=== PATIENT | male | born 1945 | race Caucasian/White ===

== ENCOUNTER 2021-08-27 10:00 | Day surgery (SDC) | payer MEDICARE, OTHER ==
[~2021-08-27] VITALS: Ht 177 cm; Wt 81.0 kg
[2021-08-27 08:28] VITALS: BP 158/95
[2021-08-27 08:45] LABS: HEMATOCRIT 44 % (40-54); HEMOGLOBIN 14.6 g/dL (13.3-17.7); MEAN CORPUSCULAR HEMOGLOBIN 32 pg (25-34); MEAN CORPUSCULAR HGB CONC 34 g/dL (32-36); MEAN CORPUSCULAR VOLUME 97 fL (80-99); PLATELET COUNT 191 10^3/uL (130-400); WHITE BLOOD COUNT 5.9 10^3/uL (4.3-11.0)
[2021-08-27 08:50] LABS: INR 1.1 (0.8-1.4); PROTHROMBIN TIME PATIENT 14.1 SEC (12.2-14.7)
[2021-08-27 09:01] LABS: BILIRUBIN,TOTAL 2.2 MG/DL (0.1-1.0); CALCIUM 9.4 MG/DL (8.5-10.1); CREATININE SERUM 0.92 MG/DL (0.60-1.30); TOTAL PROTEIN 6.6 GM/DL (6.4-8.2)
[~2021-08-27 10:00] MED LIST: ASPI-999 PO; HEParin (CATH LAB) 2,000 ML IV ONE; LIDOCAINE 1% INJ 20 ML 20 ML VIAL ONE; METO50TA7 PO; NS IV 1000 ML 1,000 ML IV SCH; NS IV 1000 ML 1,000 ML ONE; PANT40TA52 PO; SIMV20TA26 PO; SUCR1TAB PO
[2021-08-27] MEDS ORDERED: MIDAZOLAM 5 MG/5 ML (VERSED) VIAL ONE (10:33)
[2021-08-27] MEDS ORDERED: fentaNYL INJ 100 MCG/2 ML AMP ONE ×2 (10:33→15:02)
[2021-08-27] MEDS ORDERED: HEParin 1000 UNIT/ML (10ML VIAL) FOR BOLUS ONE (11:23)
[2021-08-27] MEDS ORDERED: ADENOSINE 90 MG/30 ML (ADENOSCAN) VIAL IV ONE (11:25)
[2021-08-27] MEDS ORDERED: EPTIFIBATIDE BOLUS 20 ML IV ONE (11:40)
[2021-08-27] MEDS ORDERED: NITRO DRIP 25000 MCG/D5W 250 ML IV ONE (11:44)
[2021-08-27] MEDS ORDERED: CLOPIDOGREL 300 MG (PLAVIX) TABLET PO ONE (12:06)
[2021-08-27] MEDS ORDERED: ASPIRIN 81 MG CHEW (CHILDREN'S ASA) ONE (12:07)
[2021-08-27 12:45] VITALS: BP 131/75
--- NOTE | 2021-08-27 12:51 | Cardiac Procedure Note-CS/ASA ---
Pre-Procedure Note Pre-Op Procedure Note H&P Reviewed The H&P was reviewed, patient examined and no changes noted. Date H&P Reviewed: Aug 27, 2021 Time H&P Reviewed: 11:00 Conscious Sedation Pre-Proced Time 11:00 ASA Score 3 For ASA 3 and 4: Consider anesthesia and medical clearance. Also, for patients with a history of failed moderate sedation consider anesthesia. Airway Lungs Heart ASA score ASA 1: a normal healthy patient ASA 2: a patient with a mild systemic disease (mid diabetes, controlled hypertension, obesity ASA 3: a patient with a severe systemic disease that limits activity (angina, COPD, prior Myocardial infarction) ASA 4: a patient with an incapacitating disease that is a constant threat to life (CHF, renal failure) ASA 5: a moribund patient not expected to survive 24 hrs. (ruptured aneurysm) ASA 6: a declared brain- patient whose organs are being harvested. For emergent operations, add the letter E after the classification Mallampati Classification Grade 2 Sedation Plan Analgesia, Amnesia, Plan communicated to team members, Discussed options with patient/fam, Discussed risks with patient/fam The patient is an appropriate candidate to undergo the planned procedure, sedation, and anesthesia. The patient immediately re-assessed prior to indication. CODY MURRAY MD FACP FAC CCDS Aug 27, 2021 12:51
[2021-08-27] MEDS ORDERED: PATIENT MAY USE OWN MEDS, ALL PO SCH (13:00)
[2021-08-27] MEDS ORDERED: ACETAMINOPHEN 325 MG TABLET PO PRN (13:00)
[2021-08-27] MEDS: NS IV 1000 ML 1,000 ML IV SCH ×2 (14:11→23:01)
--- NOTE | 2021-08-27 14:55 | CARDIAC CATHETERIZATION ---
DATE OF SERVICE: 08/27/2021 CARDIAC CATHETERIZATION AND CORONARY INTERVENTION REPORT INDICATION FOR PROCEDURE: The patient is a 75-year-old gentleman, who was found to have an irregular heartbeat and his primary physician, Dr. Michel carried out a Holter monitor study that showed a high burden of premature ventricular contractions and one 3-beat run of ventricular tachycardia. He has multiple coronary artery disease risk factors, as well. Accordingly, cardiac catheterization was recommended and informed consent was obtained for cardiac catheterization and possible ad hoc coronary intervention. DESCRIPTION OF PROCEDURE: He was brought to the cardiac catheterization laboratory in a fasting state. Right groin was prepared and draped in the usual sterile fashion. Lidocaine 1% was used for local anesthesia. Modified Seldinger technique was used to advance a 5-Namibian sheath in the right femoral artery. A 5-Namibian JL4 catheter was used for left coronary angiography, 5-Namibian JR4 catheter for right coronary angiography, 5-Namibian pigtail catheter was used for left heart catheterization and left ventricular coronary angiography. Subsequently, fractional flow reserve measurement was carried out in the left anterior descending artery and it is described below. FRACTIONAL FLOW RESERVE MEASUREMENT IN THE LEFT ANTERIOR DESCENDING ARTERY: We exchanged the sheath over a wire for a 6-Namibian sheath. We gave 4000 units of intravenous heparin. We used a 6-Namibian JL4 guide catheter with side holes to engage the left coronary artery and advanced the pressure wire across the lesion in the mid left anterior descending artery, which angiographically, appeared to be 60% to 70%. These were two tandem lesions, close together in the left anterior descending. The fractional flow reserve was measured while infusing 140 mcg per kilogram per minute of adenosine. Fractional flow reserve was 0.77, indicating that the lesions were hemodynamically significant. Accordingly, we proceeded with percutaneous intervention to the left anterior descending artery and it is described below. PERCUTANEOUS INTERVENTION TO THE LEFT ANTERIOR DESCENDING: We gave additional 1000 units of intravenous heparin. We gave a double bolus of Integrilin. We advanced a Starpoint 2.5 x 12 mm stent to the first lesion in the left anterior descending. Our idea was that if treatment of the first lesion improve the fractional flow reserve wire, then we may not have to intervene on the more distal lesion. We deployed the stent at 16 atmospheres. This improved the stenosis from 70% to 0% residual. The distal stenosis still appeared to be about 60% and 70% and it appeared still to be hemodynamically significant on the pressure wire readings. Therefore, we advanced another stent (2.25 x 18 mm Starpoint) and this was placed distal to the previous stent and the proximal edge of this new stent slightly overlaps the distal edge of the previously placed stent. This stent was also deployed at 16 atmospheres. Subsequently, at the site of the overlap, we used an Delphos 2.5 x 15 mm balloon that was inflated to 20 atmospheres. This was done to make sure that the stent edges are well opposed. Subsequent angiography revealed no significant residual stenosis and flow throughout the vessel is normal. The distal stent appeared slightly oversized compared to the distal vessel, but there is no evidence of any dissection or flow compromise. Two diagonal branches are jailed by the stented segment, but there is no flow compromise in these vessels. At the end of the procedure, the sheath was sutured in place and the patient was transferred to the floor for manual sheath removal. He received 600 mg of oral Plavix and 162 mg of oral aspirin at the end of this interventional procedure. He tolerated the procedure well. HEMODYNAMICS: Left ventricular end-diastolic pressure following coronary angiography was 8 mmHg. There was no significant pressure gradient on pullback across the aortic valve. Ascending aortic pressure was 116/54 with a mean of 78 mmHg. CORONARY ANGIOGRAPHY: Left main coronary artery is free of significant disease. Left anterior descending artery had tandem lesions in its mid portion (up to 70% stenosis with a fractional flow reserve across these up to 0.77). Both of these lesions were stented with overlapping stents. The proximal stent is 2.5 x 12 mm and the distal stent is 2.25 x 18 mm. The overlapping segment was postdilated with Delphos 2.5 x 15 mm balloon. This reduced the stenosis and no significant residual and flow throughout the vessel is normal. Two diagonal branches are jailed by the stented segment, but there is no flow compromise in them. The left circumflex artery does not exhibit significant disease. The right coronary artery is dominant and does not exhibit significant disease. LEFT VENTRICULAR ANGIOGRAPHY: Left ventricular angiography was carried out in the right anterior oblique projection. Global left ventricular systolic function normal. No regional wall motion abnormalities were seen. Left ventricular ejection fraction is approximately 60%. CONCLUSIONS: 1. Coronary artery disease primarily consisting of 70% stenosis in the mid left anterior descending with impaired fractional flow reserve. This was successfully treated with overlapping stents (2.5 x 12 mm proximal and 2.25 x 18 mm distal, overlapped, postdilated with 2.5 x 15 mm balloon). The rest of the coronary arteries do not exhibit significant stenoses. 2. Normal global left ventricular systolic function with ejection fraction approximately 60%. 3. Normal left ventricular end-diastolic pressure. DISCUSSION AND RECOMMENDATIONS: He is being hospitalized for overnight observation. Dual antiplatelet therapy has been initiated. Statin therapy will be continued. He is also on beta-hossein therapy, which is being continued. Job ID: [id number] DocumentID: [id number] Dictated Date: 08/27/2021 12:28:51 Deli Cutter Slicer Date: 08/27/2021 14:54:17 Dictated By: CODY MURRAY MD, MA, FACP, FACC,
[2021-08-27] MEDS ORDERED: ATROPINE INJECTION 1 MG/10 ML SYR (ABBOTT) ONE (15:04)
[2021-08-27 15:45] VITALS: BP 134/70
[2021-08-27 16:00] VITALS: BP 117/71
[2021-08-27 20:00] VITALS: BP 132/71
[2021-08-27] MEDS ORDERED: SIMvastatin 20 MG (ZOCOR) TAB PO SCH (21:00)
[2021-08-28] VITALS: BP 118/69
[2021-08-28 04:00] VITALS: BP 109/62
[2021-08-28 06:04] LABS: HEMOGLOBIN 13.3 g/dL (13.3-17.7)
[2021-08-28 06:05] LABS: BASOPHILS % (AUTO) 0 % (0-10); EOSINOPHILS # (AUTO) 0.1 10^3/uL (0.0-0.3); EOSINOPHILS % (AUTO) 2 % (0-10); HEMATOCRIT 39 % (40-54); LYMPHOCYTES # (AUTO) 1.1 10^3/uL (1.0-4.0); LYMPHOCYTES % (AUTO) 21 % (12-44); MEAN CORPUSCULAR HEMOGLOBIN 33 pg (25-34); MEAN CORPUSCULAR HGB CONC 34 g/dL (32-36); MEAN CORPUSCULAR VOLUME 97 fL (80-99); MEAN PLATELET VOLUME 13.3 fL (9.0-12.2); MONOCYTES # (AUTO) 0.3 10^3/uL (0.0-1.0); MONOCYTES % (AUTO) 6 % (0-12); NEUTROPHILS # (AUTO) 3.8 10^3/uL (1.8-7.8); NEUTROPHILS % (AUTO) 70 % (42-75); PLATELET COUNT 164 10^3/uL (130-400); WHITE BLOOD COUNT 5.4 10^3/uL (4.3-11.0)
[2021-08-28 06:17] LABS: POTASSIUM 3.8 MMOL/L (3.6-5.0)
[2021-08-28 06:18] LABS: CALCIUM 8.2 MG/DL (8.5-10.1)
[2021-08-28 06:23] LABS: CREATININE SERUM 0.75 MG/DL (0.60-1.30)
[2021-08-28 06:25] LABS: MAGNESIUM 1.7 MG/DL (1.6-2.4)
[2021-08-28 07:59] VITALS: BP 127/76
--- NOTE | 2021-08-28 07:59 | Progress Note - Cardiology ---
Cardiology SOAP Progress Note Subjective: Lying in bed No c/o CP, SOB, palpitations, syncope or near syncope No c/o right groin discomfort Objective: I&O/Vital Signs Side: right Groin site without hematoma: Yes Condition: DP/PT pulses palpable, extremity w/d/p Constitutional: AAO x 3 Respiratory: No accessory muscle use, No respiratory distress; chest expansion is symmetric, chest is bilaterally symmetric, lungs clear to auscultation Cardiovascular: regular rate-rhythm; No JVD; S1 and S2 Gastrointestional: No tender; soft, round, audible bowel sounds Extremities: no lower extremity edema bilateral Neurologic/Psychiatric: grossly intact (moves all extremities) Skin: No rash on exposed areas, No ulcerations on exposed areas Results/Procedures: Labs Microbiology 08/27/21 MRSA Screen - Final, Complete MRSA not isolated A/P: Assessment: CAD - Cardiac cath of 08-27-21: Coronary artery disease primarily consisting of 70% stenosis in the mid left anterior descending with impaired fractional flow reserve. This was successfully treated with overlapping stents (2.5 x 12 mm proximal and 2.25 x 18mm distal, overlapped, postdilated with 2.5 x 15 mm balloon). The rest of the coronary arteries do not exhibit significant stenoses. Normal global left ventricular systolic function with ejection fraction approximately 60%. Normal left ventricular end-diastolic pressure. Arrhythmia - 24 HR Holter of 08-19-[address] Michel showed freq PVC's. One 3 beat run of V- tach Hyperlipidemia - statin tx Fam h/o early CAD (mother had CABG at age approx 53) Plan: S/P cardiac cath with successful intervention on 08-27-21 Ok to discharge home today Continue DAPT, BB and statin Advise out pt f/u in 2 weeks Discharge home today CAYETANO SKELTON Aug 28, 2021 07:59
[2021-08-28] MEDS ORDERED: PANTOPRAZOLE 40 MG (PROTONIX) TAB PO SCH (09:00)
[2021-08-28] MEDS ORDERED: CLOP75TA28 PO (09:00)
[2021-08-28] MEDS ORDERED: meTOproloL SUCCINATE 50 MG (TOPROL XL) TAB PO SCH (09:00)
[2021-08-28] MEDS ORDERED: ASPIRIN 81 MG CHEW (CHILDREN'S ASA) PO SCH (09:00)
[2021-08-28] MEDS ORDERED: CLOPIDOGREL 75 MG (PLAVIX) TABLET PO SCH (09:00)
--- NOTE | 2021-08-28 09:01 | Discharge Inst-Cardiology ---
Discharge Inst-Cardiac Discharge Medications New Medications: Clopidogrel Bisulfate (Clopidogrel) 75 Mg Tablet 75 MG PO DAILY, #90 TAB 3 Refills Continued Medications: Aspirin (Aspirin) 81 Mg Tab.chew 81 MG PO DAILY, TAB Metoprolol Succinate (Metoprolol Succinate) 50 Mg Tab.er.24h 50 MG PO DAILY, TAB Pantoprazole Sodium (Pantoprazole Sodium) 40 Mg Tablet.dr 40 MG PO DAILY, TAB Simvastatin (Simvastatin) 20 Mg Tablet 20 MG PO HS, TAB Sucralfate (Sucralfate) 1 Gm Tablet 1 GM PO QID, TAB New, Converted or Re-Newed RX: Transmitted to Pharmacy Patient Instructions Patient Instructions: Please schedule follow up appointment to see Dr. Dumas in 2 weeks CAYETANO SKELTON Aug 28, 2021 09:00
[2021-08-28] MEDS: NS IV 1000 ML 1,000 ML IV SCH (09:48)
[2021-08-28 12:01] VITALS: BP 131/113
[2021-08-28 12:02] VITALS: BP 131/113
--- NOTE | 2021-08-28 13:27 | Progress Note - Cardiology ---
Cardiology SOAP Progress Note Subjective: No cp or palp or syncope No shortness of breath No groin or leg discomfort No n/v/d Objective: I&O/Vital Signs 08/28/21 08/28/21 08/28/21 08/28/21 04:00 07:00 07:59 09:00 Temp 36.5 36.5 Pulse 70 59 75 Resp 12 18 B/P (MAP) 109/62 (78) 127/76 (93) Pulse Ox 93 97 97 O2 Delivery Room Air Room Air Room Air 08/28/21 08/28/21 12:01 12:02 Temp 36.3 36.3 Pulse 73 73 Resp 18 18 B/P (MAP) 131/113 (119) 131/113 (119) Pulse Ox 97 97 O2 Delivery Room Air Room Air Side: right Groin site without hematoma: Yes Condition: DP/PT pulses palpable, extremity w/d/p Bruising: mild bruising Constitutional: AAO x 3 Respiratory: No accessory muscle use, No respiratory distress; chest expansion is symmetric, chest is bilaterally symmetric, lungs clear to auscultation Cardiovascular: regular rate-rhythm; No JVD; S1 and S2 Gastrointestional: No tender; soft, round, audible bowel sounds Extremities: no lower extremity edema bilateral Neurologic/Psychiatric: grossly intact (moves all extremities) Skin: No rash on exposed areas, No ulcerations on exposed areas Results/Procedures: Labs Laboratory Tests 08/28/21 05:25: White Blood Count 5.4, Red Blood Count 4.06L, Hemoglobin 13.3, Hematocrit 39L, Mean Corpuscular Volume 97, Mean Corpuscular Hemoglobin 33, Mean Corpuscular Hemoglobin Concent 34, Red Cell Distribution Width 12.8, Platelet Count 164, Mean Platelet Volume 13.3H, Immature Granulocyte % (Auto) 0, Neutrophils (%) (Auto) 70, Lymphocytes (%) (Auto) 21, Monocytes (%) (Auto) 6, Eosinophils (%) (Auto) 2, Basophils (%) (Auto) 0, Neutrophils # (Auto) 3.8, Lymphocytes # (Auto) 1.1, Monocytes # (Auto) 0.3, Eosinophils # (Auto) 0.1, Basophils # (Auto) 0.0, Immature Granulocyte # (Auto) 0.0, Percent Immature Platelet Fraction 12.8H, Sodium Level 139, Potassium Level 3.8, Chloride Level 109H, Carbon Dioxide Level 21, Anion Gap 9, Blood Urea Nitrogen 13, Creatinine 0.75, Estimat Glomerular Filtration Rate 101, BUN/Creatinine Ratio 17, Glucose Level 88, Calcium Level 8.2L, Magnesium Level 1.7 Microbiology 08/27/21 MRSA Screen - Final, Complete MRSA not isolated Laboratory Tests 08/27/21 08:32 08/28/21 05:25 A/P: Assessment: CAD - Cardiac cath of 08-27-21: Coronary artery disease primarily consisting of 70% stenosis in the mid left anterior descending with impaired fractional flow reserve. This was successfully treated with overlapping stents (2.5 x 12 mm proximal and 2.25 x 18mm distal, overlapped, postdilated with 2.5 x 15 mm ball oon). The rest of the coronary arteries do not exhibit significant stenoses. Normal global left ventricular systolic function with ejection fraction approximately 60%. Normal left ventricular end-diastolic pressure. Arrhythmia - 24 HR Holter of 08-19-[address] Michel showed freq PVC's. One 3 beat run of V- tach Hyperlipidemia - statin tx Fam h/o early CAD (mother had CABG at age approx 53) Plan: S/P cardiac cath with successful intervention on 08-27-21. We have discussed the details with patient and family Risk factor mod reviewed Med compliance advised Continue DAPT, BB and statin Advise out pt f/u in 2 weeks Discharge home today CODY MURRAY MD FACP FAC CCDS Aug 28, 2021 13:27
== END 2021-08-28 11:30 | disposition home or self-care (01) ==
LOC: CATH 10:00 → CSD 12:40 → CATH 08-28 11:30
PROVIDERS: ATTEND Internal Medicine Cardiovascular Disease
DX: I25.10 Atherosclerotic heart disease of native coronary artery without angina pectoris (principal); I47.2 Ventricular tachycardia; I49.3 Ventricular premature depolarization; E78.5 Hyperlipidemia, unspecified; Z82.49 Family history of ischemic heart disease and other diseases of the circulatory system; Z11.2 Encounter for screening for other bacterial diseases; Z79.82 Long term (current) use of aspirin; Z79.899 Other long term (current) drug therapy
CPT/HCPCS: 80048; 80053; 80061; 83735; 85025; 85027; 85610; 85730; 87081; 93458; 93571; C1725; C1874 ×2; C1887; C1894 ×2; C9600; 36415

== ENCOUNTER 2021-12-06 05:47 | Outpatient (CLI) | payer MEDICARE, OTHER ==
[~2021-12-06] VITALS: Ht 177.8 cm; Wt 79.6 kg
[~2021-12-06 05:47] MED LIST changes: +CLOP75TA28 PO; -HEParin (CATH LAB) 2,000 ML IV ONE; -LIDOCAINE 1% INJ 20 ML 20 ML VIAL ONE; -NS IV 1000 ML 1,000 ML IV SCH; -NS IV 1000 ML 1,000 ML ONE
== END 2021-12-06 15:00 ==
LOC: PREOP 05:47
PROVIDERS: ATTEND Specialist
DX: Z01.818 Encounter for other preprocedural examination (principal)

== ENCOUNTER 2021-12-13 09:10 | Day surgery (SDC) | payer MEDICARE, OTHER ==
[~2021-12-13] VITALS: Ht 177.8 cm; Wt 79.6 kg
[2021-12-13 09:20] VITALS: BP 146/86
[2021-12-13] MEDS ORDERED: TIMOLOL MALEATE 0.5% 5 ML (TIMOPTIC) BTL OU PRN (09:30)
[2021-12-13] MEDS ORDERED: MOXIFLOXACIN OPHTH SOLN 5 MG/ML 0.3 ML SYRINGE OP ONE (09:30)
[2021-12-13] MEDS ORDERED: POVIDONE (BETADINE) OPHTH SOLN 5% 30 ML OP ONE (09:30)
[2021-12-13] MEDS ORDERED: LIDOCAINE PF 1% 2 ML VIAL IR PRN (09:30)
[2021-12-13] MEDS: TETRACAINE 0.5% OPHTH SOLN 4 ML BTL (SINGLE DOSE ONLY) OU PRN ×4 (09:34→09:53)
[2021-12-13] MEDS: PHENYLEPHRINE 10% OPHTH (NEO-SYN) 5 ML BTL OU SCH ×3 (09:43→09:53)
[2021-12-13] MEDS: TROPICAMIDE 1% OPH SOLN (MYDRIACYL) 15 ML BTL OP SCH ×3 (09:43→09:53)
[2021-12-13] MEDS ORDERED: MIDAZOLAM 2 MG/2 ML (VERSED) VIAL ONE (09:59)
--- NOTE | 2021-12-13 09:59 | Ophthalmologist Pre-Op Note ---
Pre-Operative Progress Note H&P Reviewed The H&P was reviewed, patient examined and no changes noted. Date H&P Reviewed: Dec 13, 2021 Time H&P Reviewed: 09:59 Pre-Op Dx Cataract, Right Eye KAIDEN MATHEW MD Dec 13, 2021 09:59
[2021-12-13] MEDS ORDERED: GLYCOPYRROLATE 0.2 MG/ML (ROBINUL) 2 ML VIAL ONE (10:15)
--- NOTE | 2021-12-13 10:16 | Ophthalmology Operative Report ---
Cataract removal/placement IOL PREOPERATIVE DIAGNOSIS: Cataract Right Eye POSTOPERATIVE DIAGNOSIS: Cataract Right Eye PROCEDURE: Cataract removal and placement of posterior chamber implant, right eye SURGEON: Jesus Alberto Mathew ANESTHESIA: Topical with sedation COMPLICATIONS: None ESTIMATED BLOOD LOSS: Minimal DESCRIPTION OF PROCEDURE: After proper informed consent was obtained, the patient, a 76 male, was taken to the Operating Room and the right eye was anesthetized with tetracaine. The right eye was then prepped and draped in the usual manner. A wire lid speculum was placed. A paracentesis was made at the left hand position. Preservative free lidocaine was injected into the anterior chamber followed by viscoelastic. A clear corneal incision was made in the temporal position. A capsulorrhexis was preformed and the central nuclear and cortical material were removed. The posterior capsule was polished and Siva 20.5 AU00T0 IOL was placed into the capsular bag. The residual viscoelastic was aspirated and balanced saline solution was injected into the anterior chamber. Moxifloxacin was injected into the anterior chamber. The wound was checked and found to be water tight. The patient tolerated the procedure well without complications. JESUS ALBERTO MATHEW MD Dec 13, 2021 10:16
[2021-12-13 10:24] VITALS: BP 133/79
[2021-12-13] MEDS ORDERED: acetaZOLAMIDE ER 500 MG CAP (DIAMOX SEQUELS) PO ONE (11:30)
--- NOTE | 2021-12-13 12:30 | Anesthesia-General Post-Op ---
MAC Patient Condition Mental Status/LOC: Same as Preop Cardiovascular: Satisfactory Nausea/Vomiting: Absent Respiratory: Satisfactory Pain: Controlled Complications: Absent Post Op Complications Complications None Follow Up Care/Instructions Patient Instructions None needed. Anesthesiology Discharge Order Discharge Order Patient is doing well, no complaints, stable vital signs, no apparent adverse anesthesia problems. No complications reported per nursing. JAVIER CUADRA CRNA Dec 13, 2021 12:30
== END 2021-12-13 10:26 | disposition home or self-care (01) ==
LOC: SDC 09:10
PROVIDERS: ATTEND Specialist
DX: H25.9 Unspecified age-related cataract (principal)
CPT/HCPCS: 66984; V2632

== ENCOUNTER 2021-12-27 09:34 | Day surgery (SDC) | payer MEDICARE, OTHER ==
[~2021-12-27] VITALS: Ht 177.8 cm; Wt 79.6 kg
[2021-12-27] MEDS: TETRACAINE 0.5% OPHTH SOLN 4 ML BTL (SINGLE DOSE ONLY) OU PRN ×4 (09:40→09:57)
[2021-12-27] MEDS ORDERED: MOXIFLOXACIN OPHTH SOLN 5 MG/ML 0.3 ML SYRINGE OP ONE (09:45)
[2021-12-27] MEDS ORDERED: POVIDONE (BETADINE) OPHTH SOLN 5% 30 ML OP ONE (09:45)
[2021-12-27] MEDS ORDERED: LIDOCAINE PF 1% 2 ML VIAL IR PRN (09:45)
[2021-12-27] MEDS ORDERED: TIMOLOL MALEATE 0.5% 5 ML (TIMOPTIC) BTL OU PRN (09:45)
[2021-12-27] MEDS: PHENYLEPHRINE 10% OPHTH (NEO-SYN) 5 ML BTL OU SCH ×3 (09:47→09:57)
[2021-12-27] MEDS: TROPICAMIDE 1% OPH SOLN (MYDRIACYL) 15 ML BTL OP SCH ×3 (09:47→09:57)
[2021-12-27 09:53] VITALS: BP 148/76
[2021-12-27] MEDS ORDERED: MIDAZOLAM 2 MG/2 ML (VERSED) VIAL ONE (10:21)
--- NOTE | 2021-12-27 10:36 | Ophthalmologist Pre-Op Note ---
Pre-Operative Progress Note H&P Reviewed The H&P was reviewed, patient examined and no changes noted. Date H&P Reviewed: Dec 27, 2021 Time H&P Reviewed: 10:15 Pre-Op Dx Cataract, Left Eye KAIDEN MATHEW MD Dec 27, 2021 10:35
--- NOTE | 2021-12-27 10:36 | Ophthalmology Operative Report ---
Cataract removal/placement IOL PREOPERATIVE DIAGNOSIS: Cataract Left Eye POSTOPERATIVE DIAGNOSIS: Cataract Left Eye PROCEDURE: Cataract removal and placement of posterior chamber implant, left eye SURGEON: Jesus Alberto Mathew ANESTHESIA: Topical with sedation COMPLICATIONS: None ESTIMATED BLOOD LOSS: Minimal DESCRIPTION OF PROCEDURE: After proper informed consent was obtained, the patient, a 76 male, was taken to the Operating Room and the left eye was anesthetized with tetracaine. The left eye was then prepped and draped in the usual manner. A wire lid speculum was placed. A paracentesis was made at the left hand position. Preservative free lidocaine was injected into the anterior chamber followed by viscoelastic. A clear corneal incision was made in the temporal position. A capsulorrhexis was preformed and the central nuclear and cortical material were removed. The posterior capsule was polished and an Siva 19.0 AU00T0 was placed into the capsular bag. The residual viscoelastic was aspirated and balanced saline solution was injected into the anterior chamber. Moxifloxacin was injected into the anterior chamber. The wound was checked and found to be water tight. The patient tolerated the procedure well without complications. JESUS ALBERTO MATHEW MD Dec 27, 2021 10:36
[2021-12-27 10:40] VITALS: BP 148/76
[2021-12-27] MEDS ORDERED: acetaZOLAMIDE ER 500 MG CAP (DIAMOX SEQUELS) PO ONE (10:45)
--- NOTE | 2021-12-27 12:52 | Anesthesia-General Post-Op ---
MAC Patient Condition Mental Status/LOC: Same as Preop Cardiovascular: Satisfactory Nausea/Vomiting: Absent Respiratory: Satisfactory Pain: Controlled Complications: Absent Post Op Complications Complications None Follow Up Care/Instructions Patient Instructions None needed. Anesthesiology Discharge Order Discharge Order Patient is doing well, no complaints, stable vital signs, no apparent adverse anesthesia problems. No complications reported per nursing. JAVIER CUADRA CRNA Dec 27, 2021 12:52
== END 2021-12-27 10:43 | disposition home or self-care (01) ==
LOC: SDC 09:34
PROVIDERS: ATTEND Specialist
DX: H25.9 Unspecified age-related cataract (principal)
CPT/HCPCS: 66984; V2632